=== PATIENT | female | born 1965 | race Caucasian/White ===

== ENCOUNTER → 2017-02-13 | Outpatient (CLI) | payer BC ==
--- NOTE | 2017-02-13 09:33 | BD ---
EXAMINATION TYPE: MG DEXA axial skeleton. DATE OF EXAM: 02/13/2017 9:07 AM COMPARISON: 2104 CLINICAL HISTORY: osteoporosis Height: 5'3 Weight: 133 FRAX RISK QUESTIONS: Alcohol (3 or more units per day): no Family History (Parent hip fracture): no Glucocorticoids (More than 3mos): no (Ex: prednisone, prednisolone, methylprednisolone, dexamethasone, and hydrocortisone). History of Fracture in Adulthood: no Secondary Osteoporosis: 1. Type 1 Diabetes: no 2. Hyperthyroidism: no 3. Menopause before 45: no 4. Malnutrition: no 5. Chronic liver disease: no Rheumatoid Arthritis: no Current Tobacco Use: no RISK FACTORS HISTORY OF: Postmenopausal woman: Lost more than 2 inches in height since high school: MEDICATIONS: Additional Medications: breast cancer, Additional History: breast cancer 2004, 2013 left both EXAM MEASUREMENTS: Bone mineral densitometry was performed using the [employer] System. Bone mineral density as measured about the Lumbar spine is: ----- L1-L4(G/cm2): 1.011 T Score Values are as follows: ----- L2: -2.5 ----- L3: -1.0 ----- L4: -0.4 ----- L1-L4: -1.4 Bone mineral density has: Decreased -2.3% since study of: 02/08/2015 Bone mineral density about the R hip (g/cm2): 0.759 Bone mineral density about the L hip (g/cm2): 0.783 T Score values are as follows: -----R Neck: -2.0 -----L Neck: -1.8 -----R Intertrochanter: -1.3 -----L Intertrochanter: -1.3 Bone mineral density has: Increased 1.4% since study of: 02/08/2015 IMPRESSION: Osteopenia (T Score between -2.5 and -1 as noted by T score values:L1-L4, Jonnie Hips There is slightly increased risk of fracture and the patient may be considered for treatment. Re-Screen 1-2 years. NOTE: T-SCORE=SD OF THE YOUNG ADULT MEAN.
--- NOTE | 2017-02-18 14:51 | MM ---
Reason for exam: history of breast cancer, mastectomy. Last mammogram was performed 4 years and 3 months ago. History: Patient is postmenopausal and has history of breast cancer at age 40. Family history of breast cancer in maternal grandmother at age 70 and breast cancer in mother at age 72. Silicone gel implants in both breasts, March 2007. Mastectomy of the left breast, April 03, 2005. Chemotherapy, 2004. Excisional biopsy of the left breast, 1981. Took tamoxifen for 3 years 5 months beginning at age 40. Physical Findings: Nurse did not find any significant physical abnormalities on exam. MG Diag Mamm Implant RT w CAD CC and MLO view(s) were taken of the right breast. Prior study comparison: January 11, 2016, mammogram, performed at [facility]. November 09, 2014, mammogram, performed at [facility]. November 09, 2012, right diagnostic mammogram w/CAD. October 27, 2011, right diagnostic mammogram w/CAD. The breast tissue is heterogeneously dense. This may lower the sensitivity of mammography. Previous mammotome biopsy in the right breast. Breast implant is intact. No mass or distortion seen. These results were verbally communicated with the patient and result sheet given to the patient on 02/13/17. ASSESSMENT: Benign, BI-RAD 2 RECOMMENDATION: Follow-up diagnostic mammogram of the right breast in 1 year. Manage patient on a clinical basis.
== END | disposition home or self-care (01) ==
LOC: RADMAMWWP 08:06
PROVIDERS: ATTEND Internal Medicine Hematology & Oncology
DX: Z03.89 Encounter for observation for other suspected diseases and conditions ruled out (principal); M85.88 Other specified disorders of bone density and structure, other site; C50.919 Malignant neoplasm of unspecified site of unspecified female breast; Z85.3 Personal history of malignant neoplasm of breast; M81.8 Other osteoporosis without current pathological fracture; N95.1 Menopausal and female climacteric states
CPT/HCPCS: 77080; G0206

== ENCOUNTER → 2018-02-19 | Outpatient (CLI) | payer BC ==
--- NOTE | 2018-02-19 11:11 | MM ---
Reason for exam: additional evaluation requested from prior study. Last mammogram was performed 1 year ago. History: Patient is postmenopausal and has history of breast cancer at age 40. Family history of breast cancer in maternal grandmother at age 70 and breast cancer in mother at age 72. Silicone gel implants in both breasts, March 2007. Mastectomy of the left breast, April 03, 2005. Chemotherapy, 2004. Excisional biopsy of the left breast, 1981. Took tamoxifen for 3 years 5 months beginning at age 40. Physical Findings: Nurse did not find any significant physical abnormalities on exam. MG Diag Mamm Implant RT w CAD CC, MLO, and ID view(s) were taken of the right breast. Prior study comparison: February 13, 2017, right breast MG diag mamm implant RT w CAD. January 11, 2016, mammogram, performed at [facility]. The breast tissue is heterogeneously dense. This may lower the sensitivity of mammography. No suspicious calcifications are seen. Stable benign calcifications. Previous mammotome biopsy in the right breast. Implant is intact. No significant new findings when compared with previous films. These results were verbally communicated with the patient and result sheet given to the patient on 02/19/18. ASSESSMENT: Benign, BI-RAD 2 RECOMMENDATION: Follow-up diagnostic mammogram of the right breast in 1 year.
== END | disposition home or self-care (01) ==
LOC: RADMAMWWP 09:43
PROVIDERS: ATTEND Obstetrics & Gynecology
DX: Z08 Encounter for follow-up examination after completed treatment for malignant neoplasm (principal); Z85.3 Personal history of malignant neoplasm of breast
CPT/HCPCS: 77065

== ENCOUNTER 2018-07-28 11:43 | Emergency (ER) | payer BC ==
[2018-07-28] MEDS ORDERED: SODIUM CHLORIDE 0.9% 1,000 ML IV STA (12:01)
[2018-07-28 12:27] LABS: Glucose,Whole Blood 103 mg/dL (75-99)
[2018-07-28 12:52] LABS: Basophils % (A) 1 %; Eosinophils # (A) 0.1 k/uL (0-0.7); Eosinophils % (A) 1 %; HCT 39.8 % (34.0-46.0); HGB 13.2 gm/dL (11.4-16.0); Lymphocytes # (A) 1.5 k/uL (1.0-4.8); Lymphocytes % (A) 22 %; MCH 30.4 pg (25.0-35.0); MCHC 33.2 g/dL (31.0-37.0); MCV 91.8 fL (80.0-100.0); Monocytes # (A) 0.3 k/uL (0-1.0); Monocytes % (A) 4 %; Neutrophils # (A) 4.8 k/uL (1.3-7.7); Neutrophils % (A) 71 %; Platelet Count 315 k/uL (150-450); RBC 4.34 m/uL (3.80-5.40); RDW 14.1 % (11.5-15.5); WBC 6.8 k/uL (3.8-10.6)
[2018-07-28] MEDS ORDERED: ACETAMINOPHEN IV (For NPO) 1,000 MG in EMPTY BAG 1 BAG IVPB ONE (12:54)
--- NOTE | 2018-07-28 12:57 | ED ---
General Adult HPI - General Chief complaint: Syncope Stated complaint: Dizziness and headache, Syncope 2days ago Source: patient, family Mode of arrival: wheelchair Limitations: no limitations - History of Present Illness Initial comments: Dictation was produced using [employer] dictation software. please excuse any grammatical, word or spelling errors. Chief Complaint: 52-year-old female past medical history of breast cancer status post mastectomy and chemotherapy presents after episode of syncope , headache and dizziness since 3 days ago. History of Present Illness: Thursday she had episode where she was making breakfast. She syncopized. She was complaining of a severe sudden onset headache. Patient states that she fell in the kitchen. Follows unwitnessed however there was family in the house. They noted that she syncopized. She was not postictal per family. Over the next 48 patient has had persistent headache. She states her headache is localized to the occiput. She states that it radiates down her neck. She denies any deficits at this time. She states she feels fairly dizzy. Denies any sensation of the room spinning. Patient states that her dizziness exacerbated with movements. The ROS documented in this emergency department record has been reviewed and confirmed by me. Those systems with pertinent positive or negative responses have been documented in the HPI. All other systems are other negative and/or noncontributory. - Related Data Home Medications Medication Instructions Recorded Confirmed Anastrozole 1 mg PO DAILY 11/05/15 07/28/18 Multivitamins, Thera [Multivitamin] 1 tab PO DAILY 11/05/15 07/28/18 Calcium Carbonate [Calcium] 600 mg PO DAILY 07/28/18 07/28/18 Cholecalciferol [Vitamin D3] 1,000 unit PO DAILY 07/28/18 07/28/18 Glucosamine Sulfate 500 mg PO DAILY 07/28/18 07/28/18 Ibuprofen [Motrin Ib] 200 mg PO Q6H PRN 07/28/18 07/28/18 Allergies Allergy/AdvReac Type Severity Reaction Status Date / Time No Known Allergies Allergy Verified 07/28/18 12:06 Review of Systems ROS Statement: Those systems with pertinent positive or pertinent negative responses have been documented in the HPI. ROS Other: All systems not noted in ROS Statement are negative. Past Medical History Past Medical History: Cancer Additional Past Medical History / Comment(s): HX OF LEFT BREAST CA, RIGHT CHEST WALL CA History of Any Multi-Drug Resistant Organisms: None Reported Past Surgical History: Breast Surgery, Section, Orthopedic Surgery, Tubal Ligation, Uterine Ablation Additional Past Surgical History / Comment(s): HX OF ELIAZAR MASTECTOMY, ELIAZAR BREAST IMPLANT SX, HEMMOROIDECTOMY, CARPAL TUNNEL, Additional Past Anesthesia/Blood Transfusion Reaction / Comment(s): "COULDN'T BREATHE AFTER ONE SURGERY" Past Psychological History: No Psychological Hx Reported Smoking Status: Never smoker Past Alcohol Use History: None Reported Past Drug Use History: None Reported - Past Family History Mother Family Medical History: Cancer Additional Family Medical History / Comment(s): BREAST General Exam - General Exam Comments Initial Comments: PHYSICAL EXAM: General Impression: Alert and oriented x3, acute distress secondary to dizziness and pain HEENT: Normocephalic atraumatic, extra-ocular movements intact, pupils equal and reactive to light bilaterally, mucous membranes moist. Cardiovascular: Heart regular rate and rhythm, S1&S2 audible, no murmurs, rubs or gallops Chest: Lungs clear to auscultation bilaterally, no rhonchi, no wheeze, no rales Abdomen: Bowel sounds present, abdomen soft, non-tender, non-distended, no organomegaly Musculoskeletal: Pulses present and equal in all extremities, no peripheral edema Motor: Power 5/5 bilaterally, no focal deficits noted Neurological: CN II-XII grossly intact, no focal motor or sensory deficits noted Skin: Intact with no visualized rashes Psych: Normal affect and mood Limitations: no limitations Course Vital Signs 07/28/18 07/28/18 11:55 13:45 Temperature 98.2 F Pulse Rate 66 74 Respiratory 18 16 Rate Blood Pressure 109/64 134/66 O2 Sat by Pulse 98 100 Oximetry Medical Decision Making - Medical Decision Making ED course: 52-year-old female presents after 3 days of headache, dizziness and syncope. Vital signs upon arrival are within acceptable limits.HPI was concerning for subarachnoid hemorrhage. Laboratory evaluation was obtained. CBC is unremarkable. Coag panel is negative. Metabolic panel is negative. Computed tomography scan of the head and neck shows no acute processes. Discussed with patient that we recommend doing a lumbar puncture to look for xanthochromia or other signs of subarachnoid bleed. She states she refuses this procedure. With neurology automatic transmission mechanic Dr. Cannon if he felt comfortable keeping her here at our facility without LP for MRI. He states that he recommended she be transferred to Center where they have neurosurgery backup. Patient felt comfortable transferring by private vehicle to [facility] to understand the risk of transfer patient by private vehicle and possibly having to wait through the waiting room to seek medical attention. Discussed patient case with ER physician at [facility] who was willing to accept the patient. Patient will be transferred by private vehicle. EKG Interpretation: A 12 lead EKG was obtained. It was interpreted by myself and attending physician. There is a P wave before every QRS complex. Rate is 65. Rhythm is normal sinus rhythm, MD interval 172, QS 92, QTc 4:30. QT is not prolonged. No ST segment depression or elevation.Overall, this EKG is unremarkable - Lab Data Result diagrams: 07/28/18 12:35 07/28/18 12:35 Lab Results 07/28/18 07/28/18 07/28/18 Range/Units 12:22 12:35 12:35 WBC 6.8 (3.8-10.6) k/uL RBC 4.34 (3.80-5.40) m/uL Hgb 13.2 (11.4-16.0) gm/dL Hct 39.8 (34.0-46.0) % MCV 91.8 (80.0-100.0) fL MCH 30.4 (25.0-35.0) pg MCHC 33.2 (31.0-37.0) g/dL RDW 14.1 (11.5-15.5) % Plt Count 315 (150-450) k/uL Neutrophils % 71 % Lymphocytes % 22 % Monocytes % 4 % Eosinophils % 1 % Basophils % 1 % Neutrophils # 4.8 (1.3-7.7) k/uL Lymphocytes # 1.5 (1.0-4.8) k/uL Monocytes # 0.3 (0-1.0) k/uL Eosinophils # 0.1 (0-0.7) k/uL Basophils # 0.0 (0-0.2) k/uL PT (9.0-12.0) sec INR (<1.2) Sodium 140 (137-145) mmol/L Potassium 3.7 (3.5-5.1) mmol/L Chloride 105 (98-107) mmol/L Carbon Dioxide 25 (22-30) mmol/L Anion Gap 10 mmol/L BUN 16 (7-17) mg/dL Creatinine 0.55 (0.52-1.04) mg/dL Est GFR (CKD-EPI)AfAm >90 (>60 ml/min/1.73 sqM) Est GFR (CKD-EPI)NonAf >90 (>60 ml/min/1.73 sqM) Glucose 93 (74-99) mg/dL POC Glucose (mg/dL) 103 H (75-99) mg/dL POC Glu Sales Development Consultant ID Bandar Grant Calcium 9.2 (8.4-10.2) mg/dL Magnesium 1.9 (1.6-2.3) mg/dL Total Bilirubin 1.8 H (0.2-1.3) mg/dL AST 27 (14-36) U/L ALT 30 (9-52) U/L Alkaline Phosphatase 56 (38-126) U/L Troponin I (0.000-0.034) ng/mL Total Protein 7.7 (6.3-8.2) g/dL Albumin 4.6 (3.5-5.0) g/dL Blood Type Blood Type Recheck Antibody Screen Spec Expiration Date 07/28/18 07/28/18 07/28/18 Range/Units 12:35 12:35 12:35 WBC (3.8-10.6) k/uL RBC (3.80-5.40) m/uL Hgb (11.4-16.0) gm/dL Hct (34.0-46.0) % MCV (80.0-100.0) fL MCH (25.0-35.0) pg MCHC (31.0-37.0) g/dL RDW (11.5-15.5) % Plt Count (150-450) k/uL Neutrophils % % Lymphocytes % % Monocytes % % Eosinophils % % Basophils % % Neutrophils # (1.3-7.7) k/uL Lymphocytes # (1.0-4.8) k/uL Monocytes # (0-1.0) k/uL Eosinophils # (0-0.7) k/uL Basophils # (0-0.2) k/uL PT 10.6 (9.0-12.0) sec INR 1.1 (<1.2) Sodium (137-145) mmol/L Potassium (3.5-5.1) mmol/L Chloride (98-107) mmol/L Carbon Dioxide (22-30) mmol/L Anion Gap mmol/L BUN (7-17) mg/dL Creatinine (0.52-1.04) mg/dL Est GFR (CKD-EPI)AfAm (>60 ml/min/1.73 sqM) Est GFR (CKD-EPI)NonAf (>60 ml/min/1.73 sqM) Glucose (74-99) mg/dL POC Glucose (mg/dL) (75-99) mg/dL POC Glu Sales Development Consultant ID Calcium (8.4-10.2) mg/dL Magnesium (1.6-2.3) mg/dL Total Bilirubin (0.2-1.3) mg/dL AST (14-36) U/L ALT (9-52) U/L Alkaline Phosphatase (38-126) U/L Troponin I <0.012 (0.000-0.034) ng/mL Total Protein (6.3-8.2) g/dL Albumin (3.5-5.0) g/dL Blood Type A Positive Blood Type Recheck No Antibody Screen NEGATIVE Spec Expiration Date 07/31/2018 8913 Disposition Clinical Impression: Headache Disposition: OTHER INSTITUTION NOT DEFINED Condition: Undetermined Referrals: Neel Pacheco MD [Primary Care Provider] - 1-2 days - Out of Hospital Transfer - Req. Specs Out of Hospital Transfer - Requested Specifics: Other Emergency Center (to [facility] by private vehicle)
[2018-07-28 13:09] LABS: ALT 30 U/L (9-52); AST 27 U/L (14-36); Albumin 4.6 g/dL (3.5-5.0); Alkaline Phosphatase 56 U/L (38-126); Anion Gap 10 mmol/L; Blood Urea Nitrogen 16 mg/dL (7-17); Calcium 9.2 mg/dL (8.4-10.2); Carbon Dioxide 25 mmol/L (22-30); Chloride 105 mmol/L (98-107); Glucose 93 mg/dL (74-99); Magnesium 1.9 mg/dL (1.6-2.3); Potassium 3.7 mmol/L (3.5-5.1); Sodium 140 mmol/L (137-145); Total Bilirubin 1.8 mg/dL (0.2-1.3); Total Protein 7.7 g/dL (6.3-8.2)
[2018-07-28 13:12] LABS: INR 1.1 (<1.2); Prothrombin Time 10.6 sec (9.0-12.0)
--- NOTE | 2018-07-28 14:55 | CT ---
EXAMINATION TYPE: CT brain matiasine wo con DATE OF EXAM: 07/28/2018 COMPARISON: None HISTORY: Dizziness and headache CT DLP: 1451 mGycm, Automated exposure control for dose reduction was used. CONTRAST: None CT of the brain is performed utilizing 3 mm thick sections through the posterior fossa and 3 mm thick sections through the remaining calvarium. Study is performed within 24 hours of arrival to the hospital. No abnormal hyperdensity is present to suggest an acute intracranial hemorrhage. No mass lesion is evident. No acute infarcts are evident. Ventricles and sulci are appropriate for the patient age. Small retention cysts within the right maxillary sinus. IMPRESSIONS: 1. Normal CT brain. CT cervical spine. COMPARISON: None CT of the cervical spine is performed in the axial plane at 2 mm thick sections. Reconstructed image s in the coronal, and sagittal plane are reviewed on the computer. There is some hypodensity within the inferior right thyroid lobe. This may has some peripheral calcif ication. Consider ultrasound for additional evaluation. No acute fractures are evident. There is a kyphosis centered at C5. There is narrowing of the C5-6 disc space. Posterior spinal lamellar line is intact. Vertebral body heights are preserved. Left paracentral disc bulge or herniation is present at C6-7. This has cord contact.. Consider additi onal evaluation with MRI. Borderline spinal canal narrowing is present at 0.7 cm. Broad-based disc bulge is present C5-6. This has approximately 0.5 cm of the impression on the anteri or thecal sac. No AP spinal canal stenosis is present. No neural foraminal stenosis is evident. IMPRESSIONS: 1. Disc bulge C5-6. 2. Left paracentral disc herniation likely present C6-7. This may have cord contact and is contributi ng to spinal canal narrowing. Consider MRI for additional evaluation. 3. Cervical kyphosis in the lower cervical spine. 4. Acute osseous changes are not otherwise identified.
[2018-07-28 16:10] VITALS: BP 117/68; PULSE 82; RESP 18; TEMP 97.6
[2018-07-28 22:21] LABS: Hemoglobin A1C 5.5 % (4.0-6.0)
== END 2018-07-28 16:10 | disposition other institution (70) ==
LOC: EC 11:43
DX: R51 Headache (principal); R55 Syncope and collapse; Z85.3 Personal history of malignant neoplasm of breast; Z85.29 Personal history of malignant neoplasm of other respiratory and intrathoracic organs; Z79.899 Other long term (current) drug therapy; Z53.29 Procedure and treatment not carried out because of patient's decision for other reasons; W19.XXXA Unspecified fall, initial encounter; Y92.000 Kitchen of unspecified non-institutional (private) residence as the place of occurrence of the external cause
CPT/HCPCS: 99285; 96374; 96361; 36415; 93005; 86900; 86901; 80053; 83735; 84484; 85025; 85610; 86850; 83036; 72125; 70450; J0131

== ENCOUNTER → 2018-10-01 | Outpatient (CLI) | payer BC ==
--- NOTE | 2018-10-01 14:26 | BD ---
EXAMINATION TYPE: Axial Bone Density DATE OF EXAM: 10/01/2018 COMPARISON: 02/13/2017 CLINICAL HISTORY: Height: 62.5 IN Weight: 131 LBS RISK FACTORS HISTORY OF: Active: YES Diet low in dairy products/other sources of calcium: YES Postmenopausal woman: AGE 51 MEDICATIONS: Additional Medications: CALCIUM, VIT D, ANASTRAZOLE,GLUCOSAMINE, BABY ASPIRIN, MULTI VIT Additional History: BREAST CANCER WITH RADIATION AND CHEMO EXAM MEASUREMENTS: Bone mineral densitometry was performed using the [employer] System. Bone mineral density as measured about the Lumbar spine is: ----- L1-L4(G/cm2): 1.026 T Score Values are as follows: ----- L2: -2.4 ----- L3: -0.9 ----- L4: -0.2 ----- L1-L4: -1.1 Bone mineral density has: Increased 1.6% since study of: 02/13/2017 Bone mineral density about the R hip (g/cm2): 0.782 Bone mineral density about the L hip (g/cm2): 0.803 T Score values are as follows: -----R Neck: -1.8 -----L Neck: -1.7 -----R Total: -1.1 -----L Total: -0.9 Bone mineral density has: Increased 1.6% since study of: 02/13/2017 IMPRESSION: Osteopenia (T Score between -2.5 and -1). There is slightly increased risk of fracture and the patient may be considered for treatment. Re-Screen 2-5 years. NOTE: T-SCORE=SD OF THE YOUNG ADULT MEAN.
== END ==
LOC: RADBDWWP 13:15
PROVIDERS: ATTEND Internal Medicine Hematology & Oncology
DX: C50.919 Malignant neoplasm of unspecified site of unspecified female breast (principal); M85.80 Other specified disorders of bone density and structure, unspecified site
CPT/HCPCS: 77080

== ENCOUNTER → 2019-02-23 | Outpatient (CLI) | payer BC ==
--- NOTE | 2019-02-24 08:50 | MM ---
Reason for exam: additional evaluation requested from prior study. Last mammogram was performed 1 year ago. History: Patient is postmenopausal and has history of breast cancer at age 40. Family history of breast cancer in maternal grandmother at age 70 and breast cancer in mother at age 72. Silicone gel implants in both breasts, March 2007. Mastectomy of the left breast, April 03, 2005. Chemotherapy, 2004. Excisional biopsy of the left breast, 1981. Took tamoxifen for 3 years 5 months beginning at age 40. Physical Findings: Nurse did not find any significant physical abnormalities on exam. MG Diag Mamm Implant RT w CAD CC, MLO, and ID view(s) were taken of the right breast. Prior study comparison: February 19, 2018, right breast MG diag mamm implant RT w CAD. February 13, 2017, right breast MG diag mamm implant RT w CAD. The breast tissue is heterogeneously dense. This may lower the sensitivity of mammography. Previous mammotome biopsy in the right breast. These results were verbally communicated with the patient and result sheet given to the patient on 02/23/19. ASSESSMENT: Benign, BI-RAD 2 RECOMMENDATION: Follow-up diagnostic mammogram of the right breast in 1 year.
== END | disposition home or self-care (01) ==
LOC: RADMAMWWP 15:33
PROVIDERS: ATTEND Internal Medicine Hematology & Oncology
DX: Z08 Encounter for follow-up examination after completed treatment for malignant neoplasm (principal); Z85.3 Personal history of malignant neoplasm of breast
CPT/HCPCS: 77065

== ENCOUNTER → 2019-11-04 | Outpatient (CLI) | payer BC ==
--- NOTE | 2019-11-04 12:01 | XR ---
EXAMINATION TYPE: XR shoulder complete LT DATE OF EXAM: 11/04/2019 CLINICAL HISTORY: Left shoulder pain for 3 weeks. History of breast cancer. TECHNIQUE: Three views of the left shoulder are obtained. COMPARISON: None. FINDINGS: There is no acute fracture/dislocation evident in the left shoulder. The acromioclavicula r and glenohumeral joint spaces appear aligned. Very minimal acromioclavicular arthropathy is seen as small marginal osteophytes. The visualized ribs are intact and unremarkable. IMPRESSION: There is no acute fracture or dislocation in the left shoulder.
== END | disposition home or self-care (01) ==
LOC: RADXRMAIN 09:37
PROVIDERS: ATTEND Internal Medicine Hematology & Oncology
DX: C50.919 Malignant neoplasm of unspecified site of unspecified female breast (principal); M81.0 Age-related osteoporosis without current pathological fracture; R91.1 Solitary pulmonary nodule; E04.1 Nontoxic single thyroid nodule

== ENCOUNTER → 2019-11-11 | Outpatient (CLI) | payer BC ==
--- NOTE | 2019-11-11 13:59 | NM ---
EXAMINATION TYPE: NM bone scan whole body DATE OF EXAM: 11/11/2019 COMPARISON: NONE HISTORY: Shoulder pain Delayed whole-body scanning was performed following the injection of 24.1 mCi Tc 99m MDP. Images wer e acquired 3 hours post injection. FINDINGS: There is diffuse increased radiotracer at the glenohumeral junction is bilaterally. This may be sligh tly greater on the left than the right. Acromioclavicular joint degenerative uptake is also present. Milder diffuse uptake is present through multiple additional areas of joint spaces including knees an kles and elbows mild uptake in the region of the wrists. Some focal radiotracer is in the region of the left patella. IMPRESSION: 1. Mild diffuse uptake present more likely related to degenerative-type changes including the bilater al shoulders
== END | disposition home or self-care (01) ==
LOC: RADNMMAIN 09:52
PROVIDERS: ATTEND Internal Medicine Hematology & Oncology
DX: M25.512 Pain in left shoulder (principal)
CPT/HCPCS: 78306; A9503

== ENCOUNTER → 2020-05-11 | Outpatient (CLI) | payer BC ==
--- NOTE | 2020-05-14 08:19 | MM ---
Reason for exam: additional evaluation requested from prior study. Last mammogram was performed 1 year and 3 months ago. History: Patient is postmenopausal and has history of breast cancer at age 40. Family history of breast cancer in maternal grandmother at age 70 and breast cancer in mother at age 72. Silicone gel implants in both breasts, October 23, 2019. Radiation therapy, 2013. Silicone gel implants in both breasts, March 2007. Mastectomy of the left breast, April 03, 2005. Chemotherapy, 2004. Excisional biopsy of the left breast, 1981. Took tamoxifen for 3 years 5 months beginning at age 40. Physical Findings: Nurse did not find any significant physical abnormalities on exam. MG Diag Mamm Implant RT w CAD CC, MLO, and ID view(s) were taken of the right breast. Prior study comparison: February 23, 2019, right breast MG diag mamm implant RT w CAD. February 19, 2018, right breast MG diag mamm implant RT w CAD. The breast tissue is heterogeneously dense. This may lower the sensitivity of mammography. Previous mammotome biopsy in the right breast. No significant new findings when compared with previous films. These results were verbally communicated with the patient and result sheet given to the patient on 05/11/20. ASSESSMENT: Benign, BI-RAD 2 RECOMMENDATION: Follow-up diagnostic mammogram of the right breast in 1 year.
== END | disposition home or self-care (01) ==
LOC: RADMAMWWP 14:06
PROVIDERS: ATTEND Internal Medicine Hematology & Oncology
DX: Z85.3 Personal history of malignant neoplasm of breast (principal)
CPT/HCPCS: 77065

== ENCOUNTER → 2020-10-10 | Outpatient (CLI) | payer BC ==
[2020-10-10 07:45] LABS: Basophils # (A) 0.1 k/uL (0-0.2); Basophils % (A) 1 %; Eosinophils # (A) 0.2 k/uL (0-0.7); Eosinophils % (A) 5 %; HCT 39.1 % (34.0-46.0); HGB 12.7 gm/dL (11.4-16.0); Lymphocytes # (A) 1.5 k/uL (1.0-4.8); Lymphocytes % (A) 32 %; MCH 30.4 pg (25.0-35.0); MCHC 32.4 g/dL (31.0-37.0); MCV 93.7 fL (80.0-100.0); Mean Platelet Volume 6.4; Monocytes # (A) 0.3 k/uL (0-1.0); Monocytes % (A) 5 %; Neutrophils # (A) 2.7 k/uL (1.3-7.7); Neutrophils % (A) 56 %; Platelet Count 303 k/uL (150-450); RBC 4.17 m/uL (3.80-5.40); RDW 13.9 % (11.5-15.5); WBC 4.8 k/uL (3.8-10.6)
[2020-10-10 11:07] LABS: ALT 17 U/L (8-44); AST 20 U/L (13-35); African American GFR (CKD) 96.2 (60.0-200.0); Alkaline Phosphatase 47 U/L (41-126); Calcium 9.7 mg/dL (8.7-10.3); Carbon Dioxide 29.4 mmol/L (21.6-31.8); Chloride 104 mmol/L (96-109); Chol/HDL Ratio 2.82; Cholesterol 206 mg/dL (0-200); Globulin 2.3 g/dL (1.6-3.3); Glucose 88 mg/dL (70-110); Potassium 4.1 mmol/L (3.5-5.5); Sodium 141 mmol/L (135-145); Total Bilirubin 1.4 mg/dL (0.2-1.2); Total Protein 6.9 g/dL (6.2-8.2); Triglycerides <50.0 mg/dL (0.0-149.0)
== END | disposition home or self-care (01) ==
LOC: LABWHC1 07:25
PROVIDERS: ATTEND Pediatrics
DX: Z00.01 Encounter for general adult medical examination with abnormal findings (principal); Z13.220 Encounter for screening for lipoid disorders
CPT/HCPCS: 36415; 80053; 80061; 83721; 85025

== ENCOUNTER → 2020-11-22 | Outpatient (CLI) | payer BC ==
--- NOTE | 2020-11-22 20:52 | BD ---
EXAMINATION TYPE: Axial Bone Density DATE OF EXAM: 11/22/2020 COMPARISON: 10/01/2018 CLINICAL HISTORY: Postmenopausal female Height: 62.5 IN Weight: 123 LBS RISK FACTORS HISTORY OF: Active: YES Postmenopausal woman: AGE 50 MEDICATIONS: Additional Medications: CALCIUM, VIT D, WELLBUTRIN, ANASTRAZOLE Additional History: BREAST CANCER WITH CHEMO AND RADIATION EXAM MEASUREMENTS: Bone mineral densitometry was performed using the [employer] System. Bone mineral density as measured about the Lumbar spine is: ----- L1-L4(G/cm2): 1.060 T Score Values are as follows: ----- L2: -1.9 ----- L3: -0.5 ----- L4: 0.1 ----- L1-L4: -1.0 Bone mineral density has: Increased 3.5% since study of: 10/01/2018 Bone mineral density about the R hip (g/cm2): 0.777 Bone mineral density about the L hip (g/cm2): 0.786 T Score values are as follows: -----R Neck: -1.9 -----L Neck: -1.8 -----R Total: -0.9 -----L Total: -0.9 Bone mineral density has: Increased 0.9% since study of: 10/01/2018 IMPRESSION: Osteopenia remains present (T Score between -2.5 and -1). There remain slightly increased risk of fracture and the patient may be considered for treatment. Bon e density fairly stable from prior. Re-Screen 2-5 years. NOTE: T-SCORE=SD OF THE YOUNG ADULT MEAN.
== END | disposition home or self-care (01) ==
LOC: RADBDWWP 10:42
PROVIDERS: ATTEND Internal Medicine Hematology & Oncology
DX: M85.80 Other specified disorders of bone density and structure, unspecified site (principal); Z13.820 Encounter for screening for osteoporosis; C50.919 Malignant neoplasm of unspecified site of unspecified female breast
CPT/HCPCS: 77080

== ENCOUNTER → 2021-05-17 | Outpatient (CLI) | payer BC ==
--- NOTE | 2021-05-17 12:05 | MM ---
Reason for exam: additional evaluation requested from prior study. Last mammogram was performed 1 year ago. History: Patient is postmenopausal and has history of breast cancer at age 40. Family history of breast cancer in maternal grandmother at age 70 and breast cancer in mother at age 72. Silicone gel implants in both breasts, October 23, 2019. Radiation therapy, 2013. Silicone gel implants in both breasts, March 2007. Mastectomy of the left breast, April 03, 2005. Chemotherapy, 2004. Excisional biopsy of the left breast, 1981. Took tamoxifen for 5 years beginning at age 40. Physical Findings: Nurse did not find any significant physical abnormalities on exam. MG 3D Diag Mammo Imp W/Cad RT CC, MLO, and ID view(s) were taken of the right breast. Prior study comparison: May 11, 2020, right breast MG diag mamm implant RT w CAD. February 23, 2019, right breast MG diag mamm implant RT w CAD. The breast tissue is heterogeneously dense. This may lower the sensitivity of mammography. Stable post left mastectomy. Right subpectoral silicone implants obscures portions of the breast and limits compression. These results were verbally communicated with the patient and result sheet given to the patient on 05/17/21. ASSESSMENT: Benign, BI-RAD 2 RECOMMENDATION: Follow-up diagnostic mammogram of the right breast in 1 year.
== END | disposition home or self-care (01) ==
LOC: RADMAMWWP 11:05
PROVIDERS: ATTEND Internal Medicine Hematology & Oncology
DX: R92.2 Inconclusive mammogram (principal); Z78.0 Asymptomatic menopausal state; Z80.3 Family history of malignant neoplasm of breast; Z85.3 Personal history of malignant neoplasm of breast; Z90.12 Acquired absence of left breast and nipple
CPT/HCPCS: 77061; 77065

== ENCOUNTER → 2022-03-07 | Outpatient (CLI) | payer BC ==
--- NOTE | 2022-03-07 07:59 | XR ---
EXAMINATION TYPE: XR cervical spine w flex/ext DATE OF EXAM: 03/07/2022 TECHNIQUE: Frontal, lateral, oblique, flexion-extension lateral, and open mouth view of the cervical spine are obtained. HISTORY: M48.02 COMPARISON: CT cervical spine same day. FINDINGS: The cervical spine is visualized in its entirety from C1 thru the top of T1 level, there i s grade 1 retrolisthesis C3 on C4 and C5 on C6. Dynamic images show improved alignment C3-C4 level on flexion. The pre-vertebral soft tissue appears within normal limits. The C1-C2 articulation is wit hin normal limits on the open mouth view. Vertebral body heights are maintained. There is mild to mod erate disc space narrowing and spurring at C5-C6 level which becomes more prominent on flexion. The o blique images show right-sided neural foraminal narrowing at C5-C6 level due to marginal spurring. Ov erlying soft tissue is unremarkable. IMPRESSION: As above.
--- NOTE | 2022-03-07 09:57 | CT ---
EXAMINATION TYPE: CT cervical spine wo con DATE OF EXAM: 03/07/2022 COMPARISON: CT cervical spine July 28, 2018 HISTORY: Spinal stenosis, cervical region CT DLP: 308.00 mGycm. Automated Exposure Control for Dose Reduction was Utilized. TECHNIQUE: CT scan of the cervical spine is obtained without contrast, axial images are obtained, sa gittal and coronal reformatted images are also reviewed. FINDINGS: Cervical spine is visualized in its entirety from C1 through upper thoracic levels, redemon strates loss of normal cervical curvature. Slight grade 1 retrolisthesis C5 on C6 and C6-C7 redemonst rated. Mild to moderate disc space narrowing C5-C6 level again seen. Prevertebral soft tissue appears within normal limits. The C1-C2 articulation is within normal limits on the coronal images. Vertebr al body heights are maintained. Axial images redemonstrate C2-C3 through C4-C5 levels to remain within normal limits. Axial images at C5-C6 levels with spondylolisthesis with posterior spur disc complex effacing anterio r thecal sac and causing moderate right-sided neural foraminal narrowing. No significant change from prior. Axial images at C6-C7 level show posterior spur disc complex effacing the anterior thecal sac and cau sing [id number] bilateral neural foraminal narrowing similar to prior. Axial images at C7-T1 level appear within normal limits. There is persistent rim calcified 1.5 cm lower pole right thyroid nodule. Lung apices show no pneumot horax. Small focus of groundglass opacity anterior right upper lung measuring 1.0 cm is nonspecific, consider developing infiltrate. IMPRESSION: As above. Degenerative changes C5-C6 and C6-C7 level redemonstrated as detailed above
== END | disposition home or self-care (01) ==
LOC: RADCTMAIN 07:24
PROVIDERS: ATTEND Neurological Surgery
DX: M50.323 Other cervical disc degeneration at C6-C7 level (principal); M43.12 Spondylolisthesis, cervical region; M25.78 Osteophyte, vertebrae
CPT/HCPCS: 72052; 72125

== ENCOUNTER 2022-03-23 12:49 | Emergency (ER) | payer BC ==
[2022-03-23 12:55] VITALS: BP 144/84; PULSE 66; RESP 18; TEMP 98.4
--- NOTE | 2022-03-23 13:19 | ED ---
General Adult HPI - General Chief complaint: Fall Stated complaint: Fall Time Seen by Provider: 03/23/22 12:50 Source: patient, family Mode of arrival: ambulatory Limitations: no limitations - History of Present Illness Initial comments: Dictation was produced using [employer] dictation software. please excuse any grammatical, word or spelling errors. Chief Complaint: 56-year-old female presents to the emergency Department with right wrist pain History of Present Illness: Patient is a 56-year-old female she presents to the emergency Department with right wrist pain. She fell down the basement steps last night. States that she fell on outstretched hand. She complains of pain to the dorsum of the distal wrist. Denies any numbness distally paresthesias to the fingertips. Patient denies any lacerations. Denies any other symptoms. She reports that the pain was in her mid and upper forearm yesterday however now the pain just localized to one spot in the wrist. She's been wearing a wrist splint since yesterday. The ROS documented in this emergency department record has been reviewed and confirmed by me. Those systems with pertinent positive or negative responses have been documented in the HPI. All other systems are other negative and/or noncontributory. PHYSICAL EXAM: General Impression: Alert and oriented x3, not in acute distress HEENT: Normocephalic atraumatic, extra-ocular movements intact, pupils equal and reactive to light bilaterally, mucous membranes moist. Cardiovascular: Heart regular rate and rhythm Chest: Able to complete full sentences, no retractions, no tachypnea Musculoskeletal: Pulses present and equal in all extremities, no peripheral edema Motor: no focal deficits noted Neurological: CN II-XII grossly intact, no focal motor or sensory deficits noted Skin: Intact with no visualized rashes Psych: Normal affect and mood Right upper extremity: Tenderness over the dorsal distal radius. No elbow tenderness, range of motion is intact, no scaphoid tenderness. No wrist pain with axial loading of the thumb, no pain over the scaphoid tubercle or anatomic snuffbox ED course: 56-year-old female presents to emergency Department with right wrist pain. Signs upon arrival are within acceptable limits. X-ray of the wrist shows a comminuted nondisplaced fracture with intra-articular extension of the distal metaphyseal radius. Patient placed in a right volar are wrist splint.Patient is a [facility]. She is told to call make an appointment for outpatient management of wrist fracture. - Related Data Home Medications Medication Instructions Recorded Confirmed Anastrozole 1 mg PO DAILY 11/05/15 07/28/18 Multivitamins, Thera [Multivitamin] 1 tab PO DAILY 11/05/15 07/28/18 Calcium Carbonate [Calcium] 600 mg PO DAILY 07/28/18 07/28/18 Cholecalciferol [Vitamin D3] 1,000 unit PO DAILY 07/28/18 07/28/18 Glucosamine Sulfate 500 mg PO DAILY 07/28/18 07/28/18 Ibuprofen [Motrin Ib] 200 mg PO Q6H PRN 07/28/18 07/28/18 Allergies Allergy/AdvReac Type Severity Reaction Status Date / Time No Known Allergies Allergy Verified 03/23/22 12:55 Review of Systems ROS Statement: Those systems with pertinent positive or pertinent negative responses have been documented in the HPI. ROS Other: All systems not noted in ROS Statement are negative. Past Medical History Past Medical History: Cancer Additional Past Medical History / Comment(s): HX OF LEFT BREAST CA, RIGHT CHEST WALL CA History of Any Multi-Drug Resistant Organisms: None Reported Past Surgical History: Breast Surgery, Section, Orthopedic Surgery, Tubal Ligation, Uterine Ablation Additional Past Surgical History / Comment(s): HX OF ELIAZAR MASTECTOMY, ELIAZAR BREAST IMPLANT SX, HEMMOROIDECTOMY, CARPAL TUNNEL, Additional Past Anesthesia/Blood Transfusion Reaction / Comment(s): "COULDN'T BREATHE AFTER ONE SURGERY" Past Psychological History: No Psychological Hx Reported Smoking Status: Never smoker Past Alcohol Use History: None Reported Past Drug Use History: None Reported - Past Family History Mother Family Medical History: Cancer Additional Family Medical History / Comment(s): BREAST General Exam Limitations: no limitations Course Vital Signs 03/23/22 12:51 Temperature 98.4 F Pulse Rate 66 Respiratory 18 Rate Blood Pressure 144/84 O2 Sat by Pulse 97 Oximetry Procedures - Orthopedic Splinting/Casting Injury #2 Side: right Upper Extremity Injury Location: wrist Upper Extremity Immobilizer: wrist splint Other Orthopedic Equipment: other Disposition Clinical Impression: Wrist fracture Disposition: HOME SELF-CARE Condition: Fair Instructions (If sedation given, give patient instructions): Wrist Fracture in Adults (ED) Additional Instructions: no weight bearing to right wrist Is patient prescribed a controlled substance at d/c from ED?: No Referrals: Drake Perez DO [Doctor of Osteopathic Medicine] - 1-2 days Sophia Fuentes DO [Doctor of Osteopathic Medicine] - 1-2 days Time of Disposition: 14:07
--- NOTE | 2022-03-23 13:52 | XR ---
EXAMINATION TYPE: XR wrist complete RT DATE OF EXAM: 03/23/2022 COMPARISON: None HISTORY: Pain, slip and fall TECHNIQUE: 4 view right wrist FINDINGS: There is a subtle transverse fracture of the distal metaphyseal radius. This is comminuted with some intra-articular extension at the ulnar aspect. Alignment appears preserved. Joint spaces are preserved. Mild soft tissue swelling is present. Follow-up exam can be performed 7-10 days from acute trauma for unexplained pain. Ligamentous bone sc an could be performed if there is pain at the anatomic snuff box. IMPRESSION: 1. Comminuted nondisplaced fracture with intra-articular extension of the distal metaphyseal radius.
== END 2022-03-23 14:13 | disposition home or self-care (01) ==
LOC: EC 12:49
DX: S62.101A Fracture of unspecified carpal bone, right wrist, initial encounter for closed fracture (principal); W10.8XXA Fall (on) (from) other stairs and steps, initial encounter
CPT/HCPCS: 29125; 99284

== ENCOUNTER → 2022-05-19 | Outpatient (CLI) | payer BC ==
--- NOTE | 2022-05-20 20:29 | MM ---
Reason for Exam: Screening (asymptomatic). Last screening mammogram was performed 12 month(s) ago. Patient History: Menarche at age 12. First Full-Term at age 30. Late child-bearing (after 30). Left ovary removed at age 50. Right ovary removed at age 50. Postmenopausal. Breast cancer, left, age 39. Breast cancer, left, age 48. Previous DCIS pathology result. Previous chest radiation therapy at age 48. Previous chemotherapy at age 40. Tamoxifen for 5 years from age 40 until age 45. 04/06/2014, Malignant MG stereo VAD BX LT - 2 on the left side. 04/03/2005, Malignant Mastectomy on the left side. 1981, Excisional Biopsy on the Left side. 2004, Chemotherapy. 2013, Radiation Therapy. 03/2007, Bilateral Implants. 10/23/2019, Bilateral Implants. Maternal grandmother had breast cancer, age 70. Mother had breast cancer, age 72. Prior Study Comparison: 02/23/2019 Right Diagnostic Mammogram, [facility]. 05/11/2020 Right Diagnostic Mammogram, [facility]. 05/17/2021 Right Diagnostic Mammogram, [facility]. Tissue Density: The breast tissue is heterogeneously dense. This may lower the sensitivity of mammography. Findings: Analyzed By CAD. Retropectoral silicone implant is noted. Microclip anterior 12:00 right breast from prior biopsy. Possible partially obscured nodular asymmetric density inferior anterior right MLO view and possible adjacent distortion on the MLO view as well. Findings may represent superimposition shadow but incompletely disperses on 3-D images. Further evaluation is recommended. Overall Assessment: Incomplete: need additional imaging evaluation, BI-RAD 0 Management: Special View Mammogram of the right breast. 1. Additional views right breast to include spot 3-D MLO (2 sites) and 3-D lateral views. 2. Targeted right breast ultrasound if any persisting abnormality. Electronically signed and approved by: Pilar Villanueva M.D. Radiologist
== END | disposition home or self-care (01) ==
LOC: RADMAMWWP 10:53
PROVIDERS: ATTEND Internal Medicine Hematology & Oncology
DX: Z12.31 Encounter for screening mammogram for malignant neoplasm of breast (principal)
CPT/HCPCS: 77063; 77067

== ENCOUNTER → 2022-05-22 | Outpatient (CLI) | payer BC ==
--- NOTE | 2022-05-22 07:26 | MM ---
Reason for Exam: Additional evaluation requested from abnormal screening. Last screening mammogram was performed less than 1 month ago. Patient History: Menarche at age 12. First Full-Term at age 30. Late child-bearing (after 30). Left ovary removed at age 50. Right ovary removed at age 50. Postmenopausal. Breast cancer, left, age 39. Breast cancer, left, age 48. Previous DCIS pathology result. Previous chest radiation therapy at age 48. Previous chemotherapy at age 40. Tamoxifen for 5 years from age 40 until age 45. 04/06/2014, Malignant MG stereo VAD BX LT - 2 on the left side. 04/03/2005, Malignant Mastectomy on the left side. 1981, Excisional Biopsy on the Left side. 2004, Chemotherapy. 2013, Radiation Therapy. 03/2007, Bilateral Implants. 10/23/2019, Bilateral Implants. Maternal grandmother had breast cancer, age 70. Mother had breast cancer, age 72. Tissue Density: Right: The breast tissue is heterogeneously dense. This may lower the sensitivity of mammography. Findings: Analyzed By CAD. No distinct mass or area of distortion. No suspicious calcifications. Overall Assessment: Negative, BI-RAD 1 Management: Diagnostic Mammogram of the right breast in 1 year. A clinical breast exam by your physician is recommended on an annual basis and results should be correlated with mammographic findings. This exam should not preclude additional follow-up of suspicious palpable abnormalities. Results were given to the patient verbally at the time of exam. Electronically signed and approved by: Daniel Cano M.D. Radiologis
== END | disposition home or self-care (01) ==
LOC: RADMAMWWP 06:52
PROVIDERS: ATTEND Internal Medicine Hematology & Oncology
DX: R92.8 Other abnormal and inconclusive findings on diagnostic imaging of breast (principal); Z78.0 Asymptomatic menopausal state; Z80.3 Family history of malignant neoplasm of breast
CPT/HCPCS: 77061; 77065

== ENCOUNTER → 2023-06-05 | Outpatient (CLI) | payer BC ==
--- NOTE | 2023-06-05 11:11 | BD ---
EXAMINATION TYPE: Axial Bone Density DATE OF EXAM: 06/05/2023 CLINICAL HISTORY: 57 years old Female. ICD-10 CODE: C50.919 Breast cancer Height: 62.3 Weight: 131 FRAX RISK QUESTIONS: History of Fracture in Adulthood: yes RISK FACTORS HISTORY OF: hx of right wrist fx...2021 History of Wrist Fracture: yes, right 2021 Postmenopausal woman: at 50 Hyperparathyroidism: no Adrenal Insufficiency: no MEDICATIONS: Additional Medications: calcium, vit d, Wellbutrin, anastrozole, Additional History: hx of breast cancer, left , with chemo and radiation, 2004 and chest wall 2013, EXAM MEASUREMENTS: Bone mineral densitometry was performed using the [employer] System. Bone mineral density as measured about the Lumbar spine is: ----- L1-L4(G/cm2): 1.044 T Score Values are as follows: ----- L1: -1.4 ----- L2: -2.1 ----- L3: -1.5 ----- L4: 0.0 ----- L1-L4: -1.1 Z Score Values are as follows: ----- L1: -0.2 ----- L2: -0.9 ----- L3: -0.3 ----- L4: 1.2 ----- L1-L4: 0.1 Bone mineral density has: Decreased -1.5% since study of: 11.22.2020 Bone mineral density about the R hip (g/cm2): 0.940 Bone mineral density about the L hip (g/cm2): 0.935 T Score values are as follows: -----R Neck: -0.6 -----L Neck: -1.4 -----R Total: -0.8 -----L Total: -0.6 Z Score values are as follows: -----R Neck: 0.6 -----L Neck: -0.2 -----R Total: 0.1 -----L Total: 0.3 Bone mineral density has: Increased 2.9% since study of: 11.22.2020 FRAX%s: The graph provided illustrates a 12.5% chance for a major osteoporotic fx and a 1.1% chance f or the hips probability for fx in 10 years time. IMPRESSION: Osteopenia (T Score between -2.5 and -1). There is slightly increased risk of fracture and the patient may be considered for treatment. Re-Screen 2-5 years. NOTE: T-SCORE=SD OF THE YOUNG ADULT MEAN.
--- NOTE | 2023-06-08 08:40 | MM ---
Reason for Exam: Screening (asymptomatic). Last mammogram was performed 1 year(s) and 1 month(s) ago. Patient History: Menarche at age 12. First Full-Term at age 30. Late child-bearing (after 30). Left ovary removed at age 50. Right ovary removed at age 50. Postmenopausal. Breast cancer, left, age 39. Breast cancer, left, age 48. Previous DCIS pathology result. Previous chest radiation therapy at age 48. Previous chemotherapy at age 40. Tamoxifen for 5 years from age 40 until age 45. 04/06/2014, Malignant MG stereo VAD BX LT - 2 on the left side. 04/03/2005, Malignant Mastectomy on the left side. 1981, Excisional Biopsy on the Left side. 2004, Chemotherapy. 2013, Radiation Therapy. 03/2007, Bilateral Implants. 10/23/2019, Bilateral Implants. Maternal grandmother had breast cancer, age 70. Mother had breast cancer, age 72. Prior Study Comparison: 05/17/2021 Right Diagnostic Mammogram, [facility]. 05/19/2022 Bilateral MG 3D screen mammo imp/cad., [facility]. 05/22/2022 Right MG 3D work up w/cad RT, [facility]. Tissue Density: The breast tissue is heterogeneously dense. This may lower the sensitivity of mammography. Findings: Analyzed By CAD. Right breast implant appears intact. Right breast biopsy clip. There is no suspicious group of microcalcifications or new suspicious mass in either breast. Overall Assessment: Negative, BI-RAD 1 Management: Screening Mammogram of both breasts in [address] [facility] will attempt to contact patient to return for supplemental views and ultrasound if indicated. Patient should continue monthly self-breast exams. A clinical breast exam by your physician is recommended on an annual basis. This exam should not preclude additional follow-up of suspicious palpable abnormalities. Note on Monica scores and lifetime risk: 1. A Monica score greater than 3% is considered moderate risk. If this is the case, consider specialist referral to assess eligibility for a risk reducing agent. 2. If overall lifetime risk for the development of breast cancer is 20% or higher, the patient may qualify for future screening with alternating mammogram and breast MRI. Electronically signed and approved by: Tariq Stewart DO
== END | disposition home or self-care (01) ==
LOC: RADMAMWWP 07:03
PROVIDERS: ATTEND Internal Medicine Hematology & Oncology
DX: Z12.31 Encounter for screening mammogram for malignant neoplasm of breast (principal); C50.919 Malignant neoplasm of unspecified site of unspecified female breast; M85.89 Other specified disorders of bone density and structure, multiple sites; Z78.0 Asymptomatic menopausal state; Z80.3 Family history of malignant neoplasm of breast
CPT/HCPCS: 77063; 77067; 77080

== ENCOUNTER → 2023-09-22 | Outpatient (CLI) | payer BC ==
[2023-09-22 10:47] LABS: African American GFR (CKD) >90 (>60 ml/min/1.73 sqM); Blood Urea Nitrogen 21 mg/dL (7-17); Non-African American GFR(CKD) >90 (>60 ml/min/1.73 sqM)
--- NOTE | 2023-09-22 20:47 | CT ---
EXAMINATION TYPE: CT chest w con DATE OF EXAM: 09/22/2023 COMPARISON: None HISTORY: 58-year-old female Z03.89, left chest wall pain, h/o fall and landed on chest, h/o left ron st CA and breast implants TECHNIQUE: Contiguous axial scanning of the chest after the administration of 100 mL of Isovue 300. Coronal/sagittal reconstructions performed. CT DLP: 158.1mGycm. Automatic exposure control utilized for a dose reduction. FINDINGS: There are bilateral breast implants demonstrated. Heart normal size with trace pericardial fluid. Aorta normal caliber with conventional arch vessel branching anatomy. No thoracic lymphadenopathy by CT size criteria. There is a vague 8 mm groundglass density anterior right upper lobe, axial image 11. 3 mm subpleural pulmonary nodule posterior left upper lung, axial image 14. Some minimal nodular subpleural atelectasis posterior left base. Minimal strandy atelectasis inferior lingula. Otherwise, no consolidation or pleural effusion. Visualized upper abdomen shows no gross abnormal body. Bones: No osseous destructive process. Normal variant sternal foramen. No acute rib fracture is ident ified. IMPRESSION: 1. Bilateral breast implants. 2. A vague 8 mm groundglass density anterior right upper lobe may represent a small infectious/inflam matory focus. 3-6 month follow-up CT to reassess. 3. A nonspecific 3 mm posterior left upper lung pulmonary nodule can be reassessed at that time as we ll. 4. Otherwise, no metastatic disease or acute traumatic sequela identified in the chest.
== END | disposition home or self-care (01) ==
LOC: RADCTMAIN 10:07
PROVIDERS: ATTEND Internal Medicine Hematology & Oncology
DX: Z03.89 Encounter for observation for other suspected diseases and conditions ruled out (principal); C50.919 Malignant neoplasm of unspecified site of unspecified female breast; J98.4 Other disorders of lung; R91.1 Solitary pulmonary nodule; Z98.82 Breast implant status
CPT/HCPCS: 82565; 84520; 71260; 36415; Q9967

== ENCOUNTER → 2024-06-06 | Outpatient (CLI) | payer BC ==
--- NOTE | 2024-06-06 20:41 | MM ---
Reason for Exam: Hx of breast cancer, mastectomy. Last screening mammogram was performed 12 month(s) ago. Patient History: Menarche at age 12. First Full-Term at age 30. Late child-bearing (after 30). Left ovary removed at age 50. Right ovary removed at age 50. Postmenopausal. Patient has history of breast feeding. Breast cancer, left, age 39. Breast cancer, left, age 48. Previous DCIS pathology result. Previous chest radiation therapy at age 48. Previous chemotherapy at age 40. Tamoxifen for 5 years from age 40 until age 45. 04/06/2014, Malignant MG stereo VAD BX LT - 2 on the left side. 04/03/2005, Malignant Mastectomy on the left side. 1981, Excisional Biopsy on the Left side. 2004, Chemotherapy. 2013, Radiation Therapy. 03/2007, Bilateral Implants. 10/23/2019, Bilateral Implants. Maternal grandmother had breast cancer, age 70. Paternal grandmother had ovarian cancer, age 27. Maternal grandmother (great) had breast cancer at or over age 50. Mother had breast cancer, age 72. Prior Study Comparison: 02/19/2018 Right Diagnostic Mammogram, [facility]. 02/23/2019 Right Diagnostic Mammogram, [facility]. 05/11/2020 Right Diagnostic Mammogram, [facility]. 05/17/2021 Right Diagnostic Mammogram, [facility]. 05/19/2022 Bilateral MG 3D screen mammo imp/cad., [facility]. 05/22/2022 Right MG 3D work up w/cad RT, [facility]. 06/05/2023 Bilateral MG 3D screen mammo imp/cad., [facility]. Tissue Density: Right: The breasts are heterogeneously dense, which may obscure small masses. Findings: There is a right breast stasis. Core marker is within the right breast. There is a 0.8 cm rounded density in the lateral aspect right breast 5 cm the nipple. Additional evaluation with ultrasound is recommended. Overall Assessment: Incomplete: need additional imaging evaluation, BI-RAD 0 Management: Diagnostic Breast Ultrasound of the right breast. A negative mammogram report should not preclude additional follow up of suspicious palpable abnormalities. Patient should continue monthly self breast exam. A clinical breast exam by your physician is recommended on an annual basis and results should be correlated with mammographic findings. Note on Monica scores and lifetime risk: 1. A Monica score greater than 3% is considered moderate risk. If this is the case, consider specialist referral to assess eligibility for a risk reducing agent. 2. If overall lifetime risk for the development of breast cancer is 20% or higher, the patient may qualify for future screening with alternating mammogram and breast MRI. Electronically signed and approved by: Brendon Flores D.O. Radiologis
== END | disposition home or self-care (01) ==
LOC: RADMAMWWP 12:28
PROVIDERS: ATTEND Internal Medicine Hematology & Oncology
DX: Z12.31 Encounter for screening mammogram for malignant neoplasm of breast (principal); C50.919 Malignant neoplasm of unspecified site of unspecified female breast; M81.0 Age-related osteoporosis without current pathological fracture; M25.512 Pain in left shoulder; Z80.3 Family history of malignant neoplasm of breast; Z78.0 Asymptomatic menopausal state
CPT/HCPCS: 77067

== ENCOUNTER → 2024-06-13 | Outpatient (CLI) | payer BC ==
--- NOTE | 2024-06-13 08:52 | USB ---
Reason for Exam: Additional evaluation requested from abnormal screening. Patient History: Menarche at age 12. First Full-Term at age 30. Late child-bearing (after 30). Left ovary removed at age 50. Right ovary removed at age 50. Postmenopausal. Patient has history of breast feeding. Breast cancer, left, age 39. Breast cancer, left, age 48. Previous DCIS pathology result. Previous chest radiation therapy at age 48. Previous chemotherapy at age 40. Tamoxifen for 5 years from age 40 until age 45. 04/06/2014, Malignant MG stereo VAD BX LT - 2 on the left side. 04/03/2005, Malignant Mastectomy on the left side. 1981, Excisional Biopsy on the Left side. 2004, Chemotherapy. 2013, Radiation Therapy. 03/2007, Bilateral Implants. 10/23/2019, Bilateral Implants. Maternal grandmother had breast cancer, age 70. Paternal grandmother had ovarian cancer, age 27. Maternal grandmother (great) had breast cancer at or over age 50. Mother had breast cancer, age 72. Technique: Method: Targeted. Prior Study Comparison: 05/22/2022 Right MG 3D work up w/cad RT, [facility]. 06/05/2023 Bilateral MG 3D screen mammo imp/cad., [facility]. 06/06/2024 Right MG 3D scr robinson unilateral w/cad., [facility]. Findings: The lateral section of the breast of the right breast, the axilla of the right breast and the retroareolar of the right breast were scanned. There appears to be a cluster of cysts at the right 9:00 position 5 cm from the nipple measuring 8 x 5 mm. Six-month follow-up is advised.. Overall Assessment: Probably benign, BI-RAD 3 Management: Diagnostic Mammogram of the right breast in 6 months. A clinical breast exam by your physician is recommended on an annual basis and results should be correlated with mammographic findings. This exam should not preclude additional follow-up of suspicious palpable abnormalities. Results were given to the patient verbally at the time of exam. Electronically signed and approved by: Daniel Cano M.D. Radiologis
== END | disposition home or self-care (01) ==
LOC: RADUSWWP 08:07
PROVIDERS: ATTEND Internal Medicine Hematology & Oncology
DX: R92.8 Other abnormal and inconclusive findings on diagnostic imaging of breast (principal); Z78.0 Asymptomatic menopausal state; Z80.3 Family history of malignant neoplasm of breast

== ENCOUNTER → 2024-07-28 | Outpatient (CLI) | payer BC ==
[2024-07-28 11:53] LABS: African American GFR (CKD) >90 (>60 ml/min/1.73 sqM); Blood Urea Nitrogen 18 mg/dL (7-17); Non-African American GFR(CKD) >90 (>60 ml/min/1.73 sqM)
--- NOTE | 2024-07-29 18:24 | CT ---
EXAMINATION TYPE: CT ChestAbdPelvis w con CT DLP: 1371 mGycm, Automated exposure control for dose reduction was used. DATE OF EXAM: 07/28/2024 12:48 PM COMPARISON: 09/22/2023 CLINICAL INDICATION: Female, 58 years old with history of C50.919 BREAST CA; [facility], BREAST CANCER Technique: CT ChestAbdPelvis w con; Multiple axial images were obtained. Two-dimensional coronal and sagittal reconstructions were obtained. Contrast used:100 mL of Isovue 300 with IV Contrast, Oral contrast used: with Oral Contrast Findings: CHEST: LUNGS/ PLEURA: No focal consolidation, pneumothorax or pleural effusion. Right upper lung groundglass pulmonary nodule measuring 10 mm not significantly changed from 09/22/2023. AIRWAY: Patent and unremarkable. HEART: Size within normal limits. MEDIASTINUM: No gross evidence of adenopathy. VASCULATURE: No aortic aneurysm. MUSCULOSKELETAL: No acute osseous abnormalities. SOFT TISSUES/LYMPH NODES: Left breast implants appear intact. Fibroglandular tissue remains in the ri ght breast. No fibroglandular tissue definitively visualized in left breast. No enlarged axillary lym ph nodes. No internal mammary chain lymph nodes identified. LOWER NECK: No significant findings. ABDOMEN: ABDOMEN LIVER: Unremarkable GALLBLADDER AND BILE DUCTS: Unremarkable. PANCREAS: Unremarkable. SPLEEN: Unremarkable. ADRENAL GLANDS: Unremarkable. KIDNEYS AND URETERS: No evidence of hydronephrosis or renal calculus. The ureters are unremarkable. PELVIS BLADDER: Unremarkable REPRODUCTIVE: Unremarkable. ABDOMEN & PELVIS STOMACH AND BOWEL: No evidence of bowel obstruction. PERITONEUM: No evidence of pneumoperitoneum or free fluid. VASCULATURE: No evidence of aortic aneurysm. MUSCULOSKELETAL: No acute osseous abnormalities. Moderate disc degeneration changes are present throu ghout the thoracolumbar spine. LYMPH NODES: No gross evidence for lymphadenopathy. SOFT TISSUE/ABDOMINAL WALL: Unremarkable IMPRESSION: 1. Postsurgical changes to the breasts with no evidence for lymphadenopathy or suspicious mass to interiano ggest metastatic disease at this time. 2. 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 Surveillance with CT imaging yearly is recommended.
== END | disposition home or self-care (01) ==
LOC: RADCTMAIN 10:45
PROVIDERS: ATTEND Internal Medicine Hematology & Oncology
DX: C50.919 Malignant neoplasm of unspecified site of unspecified female breast
CPT/HCPCS: 36415; 71260; 74177; 82565; 84520

== ENCOUNTER → 2024-10-27 | Outpatient (CLI) | payer BC ==
--- NOTE | 2024-10-27 09:21 | FL ---
EXAMINATION TYPE: FL barium swallow DATE OF EXAM: 10/27/2024 9:04 AM COMPARISON: . Chest radiograph from same day. CLINICAL INDICATION:Female, 59 years old with history of R13.10 difficulty swallowing; [facility], TECHNIQUE: The procedure was explained and patient history elicited. All patient questions were ans wered prior to start of procedure. Multiple spot fluoroscopic images of the esophagus were obtained a fter the oral ingestion of effervescent crystals and liquid barium as the contrast agent. Fluoroscopic time:20 sec Fluoroscopic images:0 Radiographs taken: 110 DAP: Not reported [id number] FINDINGS: The esophagus demonstrates normal primary and secondary peristalsis. The esophageal mucosa is smooth without evidence of focal stricture, ulceration, or abnormal outpouching. No gastroesophageal reflu x disease was identified IMPRESSION: 1. Normal esophagram. [facility], , 10/27/2024 9:19 AM
== END | disposition home or self-care (01) ==
LOC: RADFLMAIN 08:14
PROVIDERS: ATTEND Pediatrics
DX: R13.10 Dysphagia, unspecified (principal)
CPT/HCPCS: 74220

== ENCOUNTER → 2024-12-08 | Outpatient (CLI) | payer BC ==
--- NOTE | 2024-12-08 10:06 | MM ---
Reason for Exam: Follow-up at short interval from prior study. Last screening mammogram was performed 6 month(s) ago. Patient History: Menarche at age 12. First Full-Term at age 30. Late child-bearing (after 30). Left ovary removed at age 50. Right ovary removed at age 50. Postmenopausal. Patient has history of breast feeding. Breast cancer, left, age 39. Breast cancer, left, age 48. Previous DCIS pathology result. Previous chest radiation therapy at age 48. Previous chemotherapy at age 40. Tamoxifen for 5 years from age 40 until age 45. 04/06/2014, Malignant MG stereo VAD BX LT - 2 on the left side. 04/03/2005, Malignant Mastectomy on the left side. 1981, Excisional Biopsy on the Left side. 2004, Chemotherapy. 2013, Radiation Therapy. 03/2007, Bilateral Implants. 10/23/2019, Bilateral Implants. Maternal grandmother had breast cancer, age 70. Paternal grandmother had ovarian cancer, age 27. Maternal grandmother (great) had breast cancer at or over age 50. Mother had breast cancer, age 72. Prior Study Comparison: 05/22/2022 Right MG 3D work up w/cad RT, [facility]. 06/05/2023 Bilateral MG 3D screen mammo imp/cad., [facility]. 06/06/2024 Right MG 3D scr robinson unilateral w/cad., [facility]. Tissue Density: Right: The breasts are heterogeneously dense, which may obscure small masses. Findings: Analyzed By CAD. Right breast implant is redemonstrated. Biopsy clip anteriorly is again seen. No suspicious new mass or distortion in the right breast. Overall Assessment: Benign, BI-RAD 2 Management: Screening Mammogram of both breasts in 6 months. Back on schedule. Results were given to the patient verbally at the time of exam. Patient should continue monthly self-breast exams. A clinical breast exam by your physician is recommended on an annual basis. This exam should not preclude additional follow-up of suspicious palpable abnormalities. Note on Monica scores and lifetime risk: 1. A Monica score greater than 3% is considered moderate risk. If this is the case, consider specialist referral to assess eligibility for a risk reducing agent. 2. If overall lifetime risk for the development of breast cancer is 20% or higher, the patient may qualify for future screening with alternating mammogram and breast MRI. [facility], , 12/08/2024 10:04 AM. Electronically signed and approved by: Car Alonzo M.D.
== END | disposition home or self-care (01) ==
LOC: RADMAMWWP 09:43
PROVIDERS: ATTEND Internal Medicine Hematology & Oncology
DX: C50.912 Malignant neoplasm of unspecified site of left female breast (principal); M25.512 Pain in left shoulder; R91.1 Solitary pulmonary nodule; M81.0 Age-related osteoporosis without current pathological fracture; Z90.722 Acquired absence of ovaries, bilateral; Z78.0 Asymptomatic menopausal state; Z80.3 Family history of malignant neoplasm of breast; R92.331 Mammographic heterogeneous density, right breast
CPT/HCPCS: 77061; 77065

== ENCOUNTER → 2025-06-09 | Outpatient (CLI) | payer BC ==
--- NOTE | 2025-06-09 10:52 | MM ---
Reason for Exam: Follow-up at short interval from prior study. Last screening mammogram was performed 6 month(s) ago. Patient History: Menarche at age 12. First Full-Term at age 30. Late child-bearing (after 30). Left ovary removed at age 50. Right ovary removed at age 50. Postmenopausal. Patient has history of breast feeding. Breast cancer, left, age 39. Breast cancer, left, age 48. Previous DCIS pathology result. Previous chest radiation therapy at age 48. Previous chemotherapy at age 40. Tamoxifen for 5 years from age 40 until age 45. 04/06/2014, Malignant MG stereo VAD BX LT - 2 on the left side. 04/03/2005, Malignant Mastectomy on the left side. 1981, Excisional Biopsy on the Left side. 2004, Chemotherapy. 2013, Radiation Therapy. 03/2007, Bilateral Implants. 10/23/2019, Bilateral Implants. Maternal grandmother had breast cancer, age 70. Paternal grandmother had ovarian cancer, age 27. Maternal grandmother (great) had breast cancer at or over age 50. Mother had breast cancer, age 72. Prior Study Comparison: 06/05/2023 Bilateral MG 3D screen mammo imp/cad., [facility]. 06/06/2024 Right MG 3D scr robinson unilateral w/cad., [facility]. 12/08/2024 Right MG 3D diag mammo imp w/cad RT, [facility]. Tissue Density: Right: The breasts are heterogeneously dense, which may obscure small masses. Findings: Analyzed By CAD. Breast implant surgery. Surgical clips noted. No suspicious calcifications or architectural distortion. Overall Assessment: Benign, BI-RAD 2 Management: Screening Mammogram of both breasts in 1 year. . Results were given to the patient verbally at the time of exam. Patient should continue monthly self-breast exams. A clinical breast exam by your physician is recommended on an annual basis. This exam should not preclude additional follow-up of suspicious palpable abnormalities. Note on Monica scores and lifetime risk: 1. A Monica score greater than 3% is considered moderate risk. If this is the case, consider specialist referral to assess eligibility for a risk reducing agent. 2. If overall lifetime risk for the development of breast cancer is 20% or higher, the patient may qualify for future screening with alternating mammogram and breast MRI. [facility], , 06/09/2025 10:49 AM. Electronically signed and approved by: Aly You M.D. [facility]
--- NOTE | 2025-06-09 11:42 | BD ---
EXAMINATION TYPE: Axial Bone Density DATE OF EXAM: 06/09/2025 CLINICAL HISTORY: 59 years old Female. ICD-10 CODE: M81.0 AGE-RELATED OSTEOPOROS , Additional Histor y: Height: 5 ft 2 in Weight: 124 FRAX RISK QUESTIONS: Alcohol (3 or more units per day): no Family History (Parent hip fracture): no Glucocorticoids (More than 3mos): no (Ex: prednisone, prednisolone, methylprednisolone, dexamethasone, and hydrocortisone). History of Fracture in Adulthood: yes Secondary Osteoporosis: 1. Type 1 Diabetes: no 2. Hyperthyroidism: no 3. Menopause before 45: yes 4. Malnutrition: no 5. Chronic liver disease: no Rheumatoid Arthritis: no Current Tobacco Use: no RISK FACTORS HISTORY OF: Surgery to Spine/Hip(right/left)/Wrist (right/left): no MEDICATIONS: Thyroid Medications: none Osteoporosis Medications: yes Which medication: unsure of name How Lon EXAM MEASUREMENTS: Bone mineral densitometry was performed using the [employer] System. Bone mineral density as measured about the Lumbar spine is: ----- L1-L4(G/cm2): 1.065 T Score Values are as follows: ----- L1: -1.2 ----- L2: -1.9 ----- L3: -0.8 ----- L4: -0.3 ----- L1-L4: -1.0 Z Score Values are as follows: ----- L1: 0.3 ----- L2: -0.4 ----- L3: 0.6 ----- L4: 1.2 ----- L1-L4: 0.5 Bone mineral density has: increased 2.0 % since study of: 2022 Bone mineral density about the R hip (g/cm2): 0.738 Bone mineral density about the L hip (g/cm2): 0.764 T Score values are as follows: -----R Neck: -2.2 -----L Neck: -2.0 -----R Total: -1.3 -----L Total: -1.2 Z Score values are as follows: -----R Neck: -0.7 -----L Neck: -0.6 -----R Total: -0.2 -----L Total: -0.1 Bone mineral density has: decreased -8.1 % since study of: 2022 FRAX%s: The graph provided illustrates a 16.3 % chance for a major osteoporotic fx and a 2.6 % chance for the hips probability for fx in 10 years time. IMPRESSION: Osteopenia (T Score between -2.5 and -1). There is slightly increased risk of fracture and the patient may be considered for treatment. Re-Screen 2-5 years. NOTE: T-SCORE=SD OF THE YOUNG ADULT MEAN. [facility], , 06/09/2025 11:40 AM
== END | disposition home or self-care (01) ==
LOC: RADBDWWP 10:04
PROVIDERS: ATTEND Internal Medicine Hematology & Oncology
DX: C50.919 Malignant neoplasm of unspecified site of unspecified female breast (principal); M81.0 Age-related osteoporosis without current pathological fracture; R91.1 Solitary pulmonary nodule; M54.59 Other low back pain; Z78.0 Asymptomatic menopausal state; M85.89 Other specified disorders of bone density and structure, multiple sites; R92.331 Mammographic heterogeneous density, right breast; Z98.82 Breast implant status; Z80.3 Family history of malignant neoplasm of breast; Z85.3 Personal history of malignant neoplasm of breast
CPT/HCPCS: 77061; 77065; 77080